=== PATIENT | female | born 1990 | race Caucasian/White ===

== ENCOUNTER 2022-12-27 11:07 | Emergency (ER) | payer OTHER, SELFPAY ==
[2022-12-27 11:10] VITALS: BP 145/93; PULSE 63; RESP 18; TEMP 36.6; O2SAT 99; BMI 42.0
[2022-12-27 12:09] VITALS: RESP 14
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
[2022-12-27 12:48] LABS: Absolute Lymphocyte Count 2.04 X10^3/uL (0.83-4.51); Absolute Neutrophil Count 8.5 X10^3/uL (2.0-7.7); Basophil# 0.06 X10^3/uL; Basophil% 0.5 % (0-1); Eosinophil# 0.04 X10^3/uL; Eosinophils% 0.4 % (0-5); Hematocrit 41.6 % (37-47); Hemoglobin 13.2 g/dL (12.0-15.0); Lymphocyte # 2.04 X10^3/ul (0.83-4.51); Lymphocyte % 18.4 % (19-41); Mean Corp Hgb Conc 31.7 g/dL (32-36); Mean Corpuscular Hgb 28.9 pg (27.0-32.0); Mean Platelet Vol. 9.7 fl (6.2-12.0); Monocyte# 0.45 X10^3/uL; Monocyte% 4.1 % (0-10); NRBC Flagged by Analyzer 0 % (0-5); Neutrophil # 8.46 X10^3/uL (2.7-7.7); Neutrophil % 76.3 % (47-70); Platelet Count 446 K/mm3 (150-450); RBC Distribution Width CV 13.9 % (11.6-14.6); RBC Distribution Width SD 46.5 fl (35.1-43.9); Red Blood Count 4.57 M/mm3 (4.2-5.4); White Blood Count 11.1 K/mm3 (4.4-11.0)
--- NOTE | 2022-12-27 12:51 | EX.ED.VIS.PS ---
HPI HPI - Psych History of Present Illness Chief Complaint: Mental Health Narrative Narrative: 31-year-old female with suicidal ideation. She currently has no plan but has not attempted suicide in the past. She states has been off her medications for a couple of months. She periodically will take BuSpar. Patient with history of borderline personality disorder, OCD, anxiety, depression. She is having increasing hallucinations which include snakes in the house and intruders in the house. Patient was brought in by her brother due to increasing psychiatric issues. Apparently she was also writing suicide letter to her family [facility] Allergy/AdvReac Type Severity Reaction Status Date / Time No Known Allergies Allergy Verified 12/27/22 11:09 Social History Smoking Status: Never smoker ROS ROS ED Constitutional Constitutional ED: Denies chills, fever(s) or sweats Eyes Eyes: Denies blurry vision or change in vision ENT ENT ED: Denies ear pain or sore throat Cardiovascular Cardiovascular: Denies chest pain, palpitations or racing heartbeat Respiratory/Chest Respiratory/Chest: Denies cough, dyspnea or sputum Gastrointestinal Gastrointestinal: Denies abdominal pain, constipation, diarrhea, nausea or vomiting Genitourinary Genitourinary ED: Denies dysuria, hematuria or urinary frequency Musculoskeletal Musculoskeletal: Denies arthralgias, myalgias or neck pain Integumentary Denies abscess, Abrasions or rash Neurologic Neurologic: Denies headache(s), paresthesias or weakness Psychiatric Psychiatric: Reports anxiety, suicidal ideation and suicidal thoughts; Denies depression Endocrine Endocrinology: Denies polydipsia or polyuria EXAM Physical Exam Const Vital Signs: 12/27/22 11:10 12/27/22 12:09 12/27/22 13:09 Temperature 97.8 F Temperature Source Temporal Pulse Rate 63 Respiratory Rate 18 14 14 Blood Pressure 145/93 H Blood Pressure Mean 110 Pulse Ox 99 Oxygen Delivery Method Room Air 12/27/22 14:09 Temperature Temperature Source Pulse Rate Respiratory Rate 14 Blood Pressure Blood Pressure Mean Pulse Ox Oxygen Delivery Method General Appearance ED: Negative for pallor HEENT Reports normocephalic, head/scalp atraumatic and moist mucous membranes Eyes PERRL and EOMs intact bilaterally Neck no lymphadenopathy and supple Chest Wall inspection of chest normal and palpation of chest normal Resp normal respiratory effort and clear to auscultation bilaterally Auscultation: Negative for rales, rhonchi or wheezes Cardio regular rate and regular rhythm GI normal to inspection, nondistended, normoactive bowel sounds and non-distended Auscultation: normoactive bowel sounds Palpation: soft Narrative: Deferred Extremity General Extremety ED: Negative for edema or tenderness General Extremity: Negative for edema Neuro oriented x3 and CN's II-XII intact bilaterally Sensorium / Orientation: alert Motor Exam: strength 5/5 throughout Psych mental status grossly normal Appearance: grossly normal Attitude: calm, guarded and No agitated Activity / Motor Behavior: avoids eye contact Speech: slow Mood & Affect: anxious, sad and tearful Thought Content: suicidality, No homicidality and hallucination(s) Positive for auditory Attention / Concentration: attention grossly impaired and concentration grossly impaired Memory / Cognition: memory grossly intact Insight: poor Judgement: poor Skin no rashes or lesions noted and no wounds General Skin Exam: Negative for jaundice or pallor MDM MDM MDM Narrative Medical decision making narrative: Patient presenting with suicidal ideation. She does not currently have a plan but has a history of suicide attempt by ingestion and she was riding a suicide note to her family. I feel the the patient will need inpatient care. Medical screening lab work was obtained. I had the geriatric social worker go see the patient and she agrees that the patient will need inpatient therapy. Screening lab work is normal. EtOH negative. Drug screen normal. Rapid COVID active. Patient medically clear for intake. She was accepted to [facility]. She will be transported when when transport is available. Impression: 1. Suicidal ideation plan 2. Depression 3. Hallucinations Lab Data Labs: Laboratory Results - last 24 hr 12/27/22 12/27/22 12/27/22 12:30 12:30 12:30 WBC 11.1 H RBC 4.57 Hgb 13.2 Hct 41.6 MCV 91.0 MCH 28.9 MCHC 31.7 L RDW Std Deviation 46.5 H RDW Coeff of Rubia 13.9 Plt Count 446 MPV 9.7 Immature Gran % (Auto) 0.300 Neut % (Auto) 76.3 H Lymph % (Auto) 18.[address] % (Auto) 4.1 Eos % (Auto) 0.4 Baso % (Auto) 0.5 Absolute Neuts (auto) 8.5 H Absolute Lymphs (auto) 2.04 Nucleated RBC % 0 Sodium 140 Potassium 3.9 Chloride 109 H Carbon Dioxide 25.0 Anion Gap 6 BUN 9 Creatinine 0.72 Estim Creat Clear Calc 88.72 Est GFR (MDRD) Af Amer 121 Est GFR (MDRD) Non-Af 100 BUN/Creatinine Ratio 12.6 Glucose 111 H Calcium 9.4 Total Bilirubin 0.30 AST 14 L ALT 18 Alkaline Phosphatase 73 Total Protein 8.0 Albumin 3.7 Globulin 4.3 H Albumin/Globulin Ratio 0.9 Serum , Qual Urine Opiates Screen Urine Methadone Screen Ur Barbiturates Screen Ur Phencyclidine Scrn Ur Amphetamines Screen MDMA (Ecstasy) Screen U Benzodiazepines Scrn Urine Cocaine Screen U Cannabinoids Screen Ur Drug Screen Comment Ethyl Alcohol < 3.0 12/27/22 12/27/22 12:30 13:42 WBC RBC Hgb Hct MCV MCH MCHC RDW Std Deviation RDW Coeff of Rubia Plt Count MPV Immature Gran % (Auto) Neut % (Auto) Lymph % (Auto) [place] % (Auto) Eos % (Auto) Baso % (Auto) Absolute Neuts (auto) Absolute Lymphs (auto) Nucleated RBC % Sodium Potassium Chloride Carbon Dioxide Anion Gap BUN Creatinine Estim Creat Clear Calc Est GFR (MDRD) Af Amer Est GFR (MDRD) Non-Af BUN/Creatinine Ratio Glucose Calcium Total Bilirubin AST ALT Alkaline Phosphatase Total Protein Albumin Globulin Albumin/Globulin Ratio Serum , Qual NEGATIVE Urine Opiates Screen NEGATIVE Urine Methadone Screen NEGATIVE Ur Barbiturates Screen NEGATIVE Ur Phencyclidine Scrn NEGATIVE Ur Amphetamines Screen NEGATIVE MDMA (Ecstasy) Screen NEGATIVE U Benzodiazepines Scrn NEGATIVE Urine Cocaine Screen NEGATIVE U Cannabinoids Screen NEGATIVE Ur Drug Screen Comment Ethyl Alcohol Discharge Plan Triage Chief Complaint: Mental Health Other Complaint: Suicidal ED Provider: Celestine Richard Dx/Rx/DC Orders Primary Care Provider: Care Physician,No Primary Referrals: Care Physician,No Primary [Primary Care Provider] -
[2022-12-27 12:57] LABS: ALB/GLOB Ratio 0.9 RATIO (0.9-2.4); AST(SGOT) 14 U/L (15-37); Alanine Aminotransfer ALT/SGPT 18 U/L (13-56); Albumin, Serum 3.7 g/dL (3.2-5.0); Alkaline Phosphatase 73 U/L (45-117); Anion Gap 6 (5-15); BUN 9 mg/dL (7-18); BUN/Creat Ratio 12.6 RATIO (10-20); Calcium,Total 9.4 mg/dL (8.5-10.1); Chloride 109 mmol/L (98-107); Creatinine, Serum 0.72 mg/dL (0.55-1.02); EST Glomerular Filtration Rate 100 mL/min (>60); Est Glom Filt Rate - Afr Amer 121 mL/min (>60); Estimated Creatinine Clearance 88.72 ml/min; Globulin 4.3 g/dL (2.2-4.2); Glucose 111 mg/dL (74-106); Potassium 3.9 mmol/L (3.5-5.1); Sodium Level 140 mmol/L (136-145)
[2022-12-27 13:09] VITALS: RESP 14
[2022-12-27 13:34] LABS: Internal QC Validated? YES +Cl - CLEAR BKGD; Pregnancy, Serum, hCG Quali. NEGATIVE Negative
[2022-12-27 13:36] LABS: Alcohol, Blood (Medical)-Serum < 3.0 mg/dL
[2022-12-27 14:03] LABS: Amphetamine Urine VISTA NEGATIVE (<1000 ng/mL); Barbiturate Urine VISTA NEGATIVE (< 200 ng/mL); Benzodiazepine Urine VISTA NEGATIVE (< 200 ng/mL); Cocaine Urine VISTA NEGATIVE (< 300 ng/mL); Ecstacy Urine VISTA NEGATIVE (< 500 ng/mL); Methadone Urine VISTA NEGATIVE (< 300 ng/mL); PCP Urine VISTA NEGATIVE (< 25 ng/mL); THC Urine VISTA NEGATIVE (< 50 ng/mL); Vista UDS pH Range 7
[2022-12-27 14:09] VITALS: RESP 14
--- NOTE | 2022-12-27 15:06 | CM.ED ---
NIRANJAN spoke to patient's brother, Eliazar, who was with patient in the ED. SW said that patient will need letter from the [facility] stating that they are financially responsible for patient. NIRANJAN provided fax number for Eliazar to fax the paperwork to this aligner typewriter. NIRANJAN faxed referral to [facility]. SW received call from [facility] stating that they have no beds but patient could be placed on waiting list. NIRANJAN called [facility] and spoke to Belinda. They are willing to review referral for patient. Patient has [facility]. Belinda requested that the financial responsibility be included in the referral packet. NIRANJAN had still not received the financial responsibility packet so NIRANJAN called Eliazar ([phone]). He said that the is his father and is in the room currently so SW could get financial responsibility paperwork now. NIRANJAN met with patient's parents, Basil Keane and Darcy Begum. Patient has [facility] and they gave the card to this aligner typewriter and social work therapist provided the card to registration to update the chart. Family asked if they could ride with patient to the facility and social work therapist said no. Family asked if they could follow the ambulance and worker will speak to accepting facility about if that is possible and their rules/regulations. Basil Keane wrote statement of financial responsibility. Basil's home phone is [phone]. NIRANJAN called [facility]. They have beds. NIRANJAN faxed referral to [facility]. Galilea HUNT
--- NOTE | 2022-12-27 15:39 | CM.ED ---
NIRANJAN received call from Yocasta at [facility]. They can accept patient. Accepting MD is Lisa. [facility]. Rn to RN is [phone]. Visitation is for the unit she is on. One person can be present during the intake. NIRANJAN updated patient and her parents. Patient gave consent to update staff, Ronald, at [facility]. NIRANJAN called Ronald and advised patient is going to [facility]. NIRANJAN provided patient's parents and patient with handout on [facility]. NIRANJAN updated MD and RN. Yaya, refinery operator helper cracking unit to schedule transport and NIRANJAN advised Yaya to notify ambulance company that patient is [facility]. Per Yaya, ride in one hour. Family updated. Galilea HUNT
--- NOTE | 2022-12-27 16:01 | NURSING ---
REPORT CALLED TO MICHA AT [facility] IN [facility] [place].
--- NOTE | 2022-12-27 16:19 | CM.ED ---
SW went and provided patient and mother with directions to [place]. Mother asked questions about what types of programming etc. No further issues or concerns voiced. Galilea HUNT
--- NOTE | 2022-12-27 19:21 | ED.RN ---
RIDE UPDATE: PT RIDE WILL BE SAME CARE [facility] WITH ETA ARRIVAL AT 2029.
[2022-12-27] MEDS: Acetaminophen 325 MG Tablet 650 MG PO (20:24)
== END 2022-12-27 20:34 ==
PROVIDERS: Emergency Provider Student in an Organized Health Care Education/Training Program; Visit Provider Student in an Organized Health Care Education/Training Program
DX: R45.851 Suicidal ideations (principal); F41.9 Anxiety disorder, unspecified; R44.0 Auditory hallucinations; Z20.822 Contact with and (suspected) exposure to COVID-19
CPT/HCPCS: 80053; 80307; 82077; 84703; 85025; 87811; 99284